=== PATIENT | male | born 1975 | race Caucasian/White ===

== ENCOUNTER 2020-04-13 17:59 | Emergency (ER) | payer BC ==
[~2020-04-13 17:59] MED LIST: NORCO 5-325 TA1 EACH PO
[2020-04-13 22:06] LABS: HEMOGLOBIN 13.3 gm/dl (14.0-17.5); RED BLOOD COUNT 4.49 M/UL (4.20-5.50)
[2020-04-13 22:22] LABS: BUN/CREATININE RATIO 16 (0-10)
[2020-04-14] MEDS ORDERED: BACTRIM DS TAB1 EACH PO (00:22)
[2020-05-15] MEDS ORDERED: HYDROXYCHLOROQ200 MG PO (07:05)
[2020-05-15] MEDS ORDERED: LEVOTHYROXINE175 MC1 PO (07:05)
[2020-05-15] MEDS ORDERED: VITAMIN D PO (07:06)
[2020-05-15] MEDS ORDERED: ZYLOPRIM100 MG PO (07:06)
[2020-05-15] MEDS ORDERED: NEURONTIN300 MG PO (07:07)
[2020-05-15] MEDS ORDERED: TYLENOL ARTHRITIS PO (07:08)
== END 2020-04-14 01:35 | disposition home or self-care (01) ==
LOC: ER1 17:59
PROVIDERS: Physician Assistant
DX: L02.214 Cutaneous abscess of groin (principal); L03.314 Cellulitis of groin; Z90.49 Acquired absence of other specified parts of digestive tract
CPT/HCPCS: 80053; 83605; 85025; 86140; 87040; 87070; 87077; 87186; 87205; 96365; 96366; 99284; J3370; J7030; Q9967

== ENCOUNTER → 2020-05-15 | Day surgery (SDC) | payer BC ==
[~2020-05-15] MED LIST changes: +BACTRIM DS TAB1 EACH PO; +HYDROXYCHLOROQ200 MG PO; +Holter Monitor; +LEVOTHYROXINE175 MC1 PO; +NEURONTIN300 MG PO; +TYLENOL ARTHRITIS PO; +VITAMIN D PO; +ZYLOPRIM100 MG PO
== END | disposition home or self-care (01) ==
LOC: OR 06:34
DX: K29.71 Gastritis, unspecified, with bleeding (principal); K57.30 Diverticulosis of large intestine without perforation or abscess without bleeding; K63.5 Polyp of colon; E11.9 Type 2 diabetes mellitus without complications; I10 Essential (primary) hypertension; M19.90 Unspecified osteoarthritis, unspecified site; E03.9 Hypothyroidism, unspecified; F10.20 Alcohol dependence, uncomplicated; Z98.84 Bariatric surgery status; Z79.899 Other long term (current) drug therapy
CPT/HCPCS: J2704; J7040

== ENCOUNTER 2020-08-27 15:17 | Emergency (ER) | payer BC ==
[~2020-08-27 15:17] MED LIST changes: -Holter Monitor
[2020-08-27 18:27] LABS: HEMOGLOBIN 16.4 gm/dl (14.0-17.5); RED BLOOD COUNT 5.39 M/UL (4.20-5.50); WHITE BLOOD COUNT 8.9 K/UL (4.5-11.0)
[2020-08-27 18:54] LABS: BUN/CREATININE RATIO 11 (0-10)
[2020-08-27] MEDS ORDERED: Holter Monitor (20:57)
== END 2020-08-27 21:38 | disposition home or self-care (01) ==
LOC: ER1 15:17
PROVIDERS: Nurse Practitioner
DX: R10.9 Unspecified abdominal pain (principal); R00.2 Palpitations
CPT/HCPCS: 80053; 81001; 82550; 82553; 83605; 83690; 84484; 85025; 93005; 99284; Q9967

== ENCOUNTER → 2020-11-07 | Outpatient (CLI) | payer BC ==
[~2020-11-07] MED LIST changes: +Holter Monitor
== END ==
LOC: HEART 5 10:26
DX: R00.2 Palpitations (principal); R55 Syncope and collapse; I08.1 Rheumatic disorders of both mitral and tricuspid valves
CPT/HCPCS: 93306

== ENCOUNTER → 2020-11-18 | Outpatient (CLI) | payer BC | LOC: CATH 09:59 | DX: R55 Syncope and collapse (principal); I10 Essential (primary) hypertension ==

== ENCOUNTER → 2021-01-16 | Outpatient (CLI) | payer BC | LOC: KOH-I 15:24 | DX: M25.512 Pain in left shoulder (principal); M50.322 Other cervical disc degeneration at C5-C6 level | CPT/HCPCS: 72040; 73030 ==

== ENCOUNTER 2021-12-14 07:10 | Emergency (ER) | payer BC ==
[2021-12-14 07:56] LABS: HEMOGLOBIN 15.8 gm/dl (14.0-17.5); RED BLOOD COUNT 5.19 M/UL (4.20-5.50); WHITE BLOOD COUNT 7.9 K/UL (4.5-11.0)
[2021-12-14 08:20] LABS: BUN/CREATININE RATIO 6 (0-10)
[2021-12-14] MEDS ORDERED: PROTONIX40 MG PO (10:39)
== END 2021-12-14 11:35 | disposition home or self-care (01) ==
LOC: ER1 07:10
PROVIDERS: Physician Assistant
DX: R10.9 Unspecified abdominal pain (principal); K57.30 Diverticulosis of large intestine without perforation or abscess without bleeding; Z88.1 Allergy status to other antibiotic agents
CPT/HCPCS: 80053; 82550; 82553; 83605; 83690; 84484; 85025; 93005; 96374; 96375; 99284; C9113; J2270; J2405; Q9967